=== PATIENT | male | born 1950 | race Caucasian/White ===

== ENCOUNTER 2018-05-07 08:00 | Emergency (ER) | payer OTHER ==
[2018-05-07 08:18] VITALS: BMI 26.6
--- NOTE | 2018-05-07 08:44 | PDOC ---
History of Present Illness - General Chief Complaint: Pain Stated Complaint: BACK PAIN Time Seen by Provider: 05/07/18 08:44 History Source: Patient, Family - History of Present Illness Initial Comments: 05/07/18 09:07 HPI/ROS/PE performed with family translating. Phone skeiner was offered and refused. 67 year old male with PMH kidney stone (2011) presented to ED for right sided flank pain x2 days. He stated his pain is associated with nausea, vomiting. He denied abdominal pain, diarrhea, dysuria, fever, chest pain, shortness of breath. He stated todays pain feels different than his last kidney stone. Pt reported he has been lifting heavy boxes recently. Past History - Past Medical History Allergies/Adverse Reactions: Allergies Allergy/AdvReac Type Severity Reaction Status Date / Time No Known Allergies Allergy Verified 05/07/18 08:18 Home Medications: Ambulatory Orders Ibuprofen 600 mg PO QID #16 tablet 05/07/18 Oxycodone HCl/Acetaminophen [Percocet 5-325 mg Tablet -] 1 tab PO TID PRN #12 tablet MDD 3 05/07/18 Tamsulosin HCl [Flomax] 0.4 mg PO HS #10 capsule 05/07/18 COPD: No Kidney Stones: Yes - Immunization History Immunization Up to Date: Yes - Suicide/Smoking/Psychosocial Hx Smoking History: Never smoked Hx Alcohol Use: Yes Drug/Substance Use Hx: No Review of Systems - Review of Systems Able to Perform ROS?: Yes Comments:: 05/07/18 09:09 General: denied fever, chills, night sweats, generalized weakness. HEENT: denied sore throat, rhinorrhea, ear pain. Heart: denied chest pain, palpitations, syncope, lower extremity swelling, diaphoresis. Respiratory: denied shortness of breath, cough, sputum production, hemoptysis. Abdomen: admitted to nausea, vomiting. denied abdominal pain, diarrhea, constipation, blood in stool. : admitted to flank pain. denied dysuria, increased urinary frequency, hematuria, urinary incontinence. Back: denied back pain. Musculoskeletal: denied joint pain, muscle pain, joint swelling. Neurological: denied headache, dizziness, numbness, tingling, weakness. Skin: denied rash, laceration, abrasion. *Physical Exam - Vital Signs Last Vital Signs Temp Pulse Resp BP Pulse Ox 97.8 F 47 L 18 128/68 100 05/07/18 08:10 05/07/18 08:10 05/07/18 08:10 05/07/18 08:10 05/07/18 08:10 - Physical Exam Comments: 05/07/18 09:09 Constitutional: Well-nourished, Well-developed, appearing stated age. HEENT: head is normocephalic, atraumatic. EOMI. PERRLA. Neck: supple. Full ROM. Heart: regular rhythm. no murmurs, rubs or gallops. Lungs: clear to auscultation bilaterally. no crackles, rhonchi or wheezing. no stridor. Back: no CVA tenderness bilaterally. no midline L-spine tenderness. no paraspinal L-spine tenderness to palpation. Abdomen: soft, nontender. normal bowel sounds. no rebound, guarding, masses. Extremities: Peripheral pulses intact and equal. No lower extremity edema. Neurological: CN 2-12 grossly intact. Moves all four extremities. Psych: awake, alert, oriented x3. Follows commands. Answers questions appropriately. ED Treatment Course - LABORATORY CBC & Chemistry Diagram: 05/07/18 09:00 05/07/18 09:00 Medical Decision Making - Medical Decision Making 05/07/18 09:11 67 year old male with PMH kidney stone presented to ED for right sided flank pain associated with nausea/vomiting x2 days. Initial Vital Signs Temp Pulse Resp BP Pulse Ox 97.8 F 47 L 18 128/68 100 05/07/18 08:10 05/07/18 08:10 05/07/18 08:10 05/07/18 08:10 05/07/18 08:10 Afebrile. Bradycardia, no chest pain, no shortness of breath. No tachypnea. No hypertension. No hypoxia on room air. Pending spiral CT for evaluation of possible nephrolithiasis. Pending UA/UC, CMP, CBC for evaluation of possible UTI, pyelonephritis, kidney function. Coag and T/S sent for pre-op purposes. Tylenol ordered for pain. 05/07/18 10:02 CBC WBC 7.6 K/mm3 (4.0-10.0) 05/07/18 09:00 RBC 5.00 M/mm3 (4.00-5.60) 05/07/18 09:00 Hgb 14.4 GM/dL (11.7-16.9) 05/07/18 09:00 Hct 45.3 % (35.4-49) 05/07/18 09:00 MCV 90.5 fl (80-96) 05/07/18 09:00 MCH 28.9 pg (25.7-33.7) 05/07/18 09: MCHC 31.9 g/dl (32.0-35.9) L 05/07/18: RDW 13.6 % (11.9-15.9) 05/07/18 09:00 Plt Count 234 K/MM3 (134-434) 05/07/18 09:00 MPV 8.0 fl (7.5-11.1) 05/07/18:00 Absolute Neuts (auto) 6.0 K/mm3 (1.5-8.0) 05/07/18 09: Neutrophils % 78.7 % (42.8-82.8) 05/07/18: Lymphocytes % 14.0 % (8-40) 05/07/18 09:00 Monocytes % 6.2 % (3.8-10.2) 05/07/18 09:00 Eosinophils % 0.4 % (0-4.5) 05/07/18:00 Basophils % 0.7 % (0-2.0) 05/07/18 09:00 Nucleated RBC % 0 % (0-0) 05/07/18 09: No leukocytosis. No anemia. Urine Test Results Urine Color Ltyellow 05/07/18: Urine Appearance Clear 05/07/18: Urine pH 7.0 (5.0-8.0) 05/07/18: Ur Specific Graham 1.013 (1.010-1.035) 05/07/18 09:00 Urine Protein Negative (NEGATIVE) 05/07/18:00 Urine Glucose (UA) Negative (NEGATIVE) 05/07/18 09:00 Urine Ketones Negative (NEGATIVE) 05/07/18 09: Urine Blood Negative (NEGATIVE) 05/07/18 09: Urine Nitrite Negative (NEGATIVE) 05/07/18: Urine Bilirubin Negative (<2.0 mg/dL) 05/07/18 09:00 Ur Leukocyte Esterase Negative (NEGATIVE) 05/07/18 09:00 No evidence of UTI. No blood in urine. 05/07/18 10:24 CMP Sodium 140 mmol/L (136-145) 05/07/18 09:00 Potassium 4.7 mmol/L (3.5-5.1) 05/07/18 09:00 Chloride 110 mmol/L (98-107) H 05/07/18 09:00 Carbon Dioxide 25 mmol/L (21-32) 05/07/18 09:00 Anion Gap 5 MMOL/L (8-16) L 05/07/18 09:00 BUN 20 mg/dL (7-18) H 05/07/18 09:00 Creatinine 1.2 mg/dL (0.55-1.3) 05/07/18 09:00 Creat Clearance w eGFR > 60 (>60) 05/07/18 09:00 Random Glucose 114 mg/dL (74-106) H 05/07/18 09:00 Calcium 9.6 mg/dL (8.5-10.1) 05/07/18 09:00 Total Bilirubin 0.4 mg/dL (0.2-1) 05/07/18 09:00 AST 16 U/L (15-37) 05/07/18 09:00 ALT 23 U/L (13-61) 05/07/18 09:00 Alkaline Phosphatase 92 U/L (45-117) 05/07/18 09:00 Total Protein 7.6 g/dl (6.4-8.2) 05/07/18 09:00 Albumin 4.0 g/dl (3.4-5.0) 05/07/18 09:00 No electrolyte abnormalities. No JANET. Pt is dehydrated, normal saline bolus given. No LFT abnormality. Pending CT. 05/07/18 10:[address] results: 4-5 mm right ureteral calculus at UVJ with hydronephrosis. nonobstructing multiple calculi noted in left kidney, 2-4 mm. incidental gastric hypertrophy with upper abdominal lymph nodes noted. left renal cyst and liver cyst noted. No AAA. Pt reported slight improvement of pain with tylenol. Toradol ordered. Flomax ordered. 05/07/18 11:00 Pt notified of results and told there isd a possibility of the findings being the result of cancer. Pt informed of need to follow up with GI on these findings. Pt stated that that he understood and would follow up. Pt stated that he has a PCP but it is difficult to get an appointment. Pt given copy of CT report. Will give pt PCP follow up. Will given pt urology and GI follow up. 05/07/18 11:19 Pt given PCP appointment with Dr. Edward 05/12 at 1045 AM. *DC/Admit/Observation/Transfer Diagnosis at time of Disposition: Kidney stone - Discharge Dispostion Disposition: HOME Condition at time of disposition: Stable Decision to Admit order: No - Prescriptions Prescriptions: Ibuprofen 600 mg PO QID #16 tablet Oxycodone HCl/Acetaminophen [Percocet 5-325 mg Tablet -] 1 tab PO TID PRN #12 tablet MDD 3 PRN Reason: Severe Pain Tamsulosin HCl [Flomax] 0.4 mg PO HS #10 capsule - Referrals Referrals: Cesar Abad MD [Staff Physician] - Leonardo Pettit MD [Staff Physician] - Edmundo Garcia MD [Staff Physician] - Renzo Cárdenas MD., MD [Staff Physician] - Ramesh Busby MD [Staff Physician] - - Patient Instructions Printed Discharge Instructions: Kidney Stones -- Adult Additional Instructions: You were seen today for flank pain. Your lab work was normal. Your cat-scan showed a kidney stone on the right that is causing your pain. There were smaller stones also seen on the left. Follow up with the urologist I have provided for you on these findings. I have sent pain medication and flomax to your pharmacy, take as advised on label. Incidentally, your stomach appeared thickened, and there were lymph nodes seen in your upper abdomen. This finding is concerning for cancer. Follow up with the hull outfit supervisor I have provided for you. I have provided you with an appointment for a primary care doctor. Attend the appointment given to you, Saturday 05/12 at [address] Taylor Muhammad. Your care is not complete until you follow up with the primary care doctor , urologist and hull outfit supervisor. Return to the Emergency Department for increasing pain, vomiting, chest pain, shortness of breath, lightheadedness like you may pass out, vomiting blood, or any other new, worsening or concerning symptoms. Fuiste visto hoy por dolor en el flanco. Tu trabajo de laboratorio fue normal. Maloney escner de jolanta mostr un clculo renal en la derecha que est causando maloney dolor. Tambin se vean piedras ms pequeas a la izquierda. [place] un seguimiento con el urlogo que le proporcion sobre estos hallazgos. He enviado medicamentos para el dolor y flomax a maloney farmacia, tome zoe se indica en la etiqueta. Incidentalmente, maloney estmago pareca engrosado y se observaron ganglios linfticos en la parte superior del abdomen. Iveth hallazgo es preocupante para el cncer. [place] un seguimiento con el gastroenterlogo que le proporcion. Le he proporcionado evan agus para un mdico de atencin primaria. Asista a la agus que le dieron, el lun05/12 a las [address] Taylor Muhammad. Maloney atencin no est completa hasta que [place] un seguimiento con el mdico de atencin primaria, el urlogo y el gastroenterlogo. Regrese al Departamento de Emergencias para aumentar el dolor, los vmitos, el dolor en el pecho, la falta de aliento, el mareo zoe si pudiera desmayarse, vmitos con paola o cualquier otro sntoma nuevo, que empeore o relacionado. - Post Discharge Activity Forms/Work/School Notes: Back to Work
--- NOTE | 2018-05-07 08:45 | PDOC ---
Attending Attestation - Resident Resident Name: Paulette Seay - ED Attending Attestation I have performed the following: I have examined & evaluated the patient, The case was reviewed & discussed with the resident, I agree w/resident's findings & plan, Exceptions are as noted - HPI HPI: 05/07/18 09:18 Mr Joseph is a very healthy 67 yo M who presents to the ER with a complaint of right flank pain Pt has a h/o kidney stones 12 years ago (requiring intervention) Pt states this feels different Pain is sharp, no radiation, no alleviating factors Pain began last night (+) nausea No hematuria, no dysuria - Physicial Exam PE: 05/07/18 09:53 GENERAL: The patient is in no acute distress. LUNGS: Breath sounds equal, clear to auscultation bilaterally. No wheezes, and no crackles. HEART:Regular rate and rhythm, normal S1 and S2 without murmur, rub or gallop. ABDOMEN: Soft, nontender, normoactive bowel sounds. No guarding, no rebound. EXTREMITIES: Normal range of motion, no edema. No clubbing or cyanosis. No erythema, or tenderness. NEUROLOGICAL: Cranial nerves II through XII grossly intact. Normal speech. No focal neurological deficits. MUSCULOSKELETAL: Back non-tender to palpation, Right CVA tenderness SKIN: Warm, Dry, normal turgor, no rashes or lesions noted. - Medical Decision Making 05/07/18 09:54 DD includes: Pyelonephritis, obstructing stone, aortic disaster, musculoskeletal pain Will do: Labs Spiral CT Tylenol for now Re assess 5mm UVJ stone Also, gastric wall thickening We have discussed with patient and daughter the incredible importance of following up with PMD and GI This is potentially a diagnosis of cancer and therefore must be expeditiously worked up Will plan to discharge to home with treatment for kidney stones
[2018-05-07] MEDS ORDERED: KETOROLAC TROMETHAMINE 30 MG/1 ML VIAL IVPUSH ONE ×2 (08:59→10:59)
[2018-05-07] MEDS ORDERED: KETOROLAC TROMETHAMINE 30 MG/1 ML VIAL ONE ×2 (09:03→11:03)
[2018-05-07] MEDS ORDERED: ACETAMINOPHEN 1000 MG/100 ML VIAL (NON FORMULARY) IVPB ONE ×2 (09:09→09:10)
[2018-05-07] MEDS ORDERED: ACETAMINOPHEN INJECTION 100 ML IVPB ONE (09:10)
[2018-05-07] MEDS ORDERED: SODIUM CHLORIDE 1,000 ML IV STA (09:32)
[2018-05-07 09:35] LABS: BASO % 0.7 % (0-2.0); EOS % 0.4 % (0-4.5); HEMATOCRIT 45.3 % (35.4-49); HEMOGLOBIN 14.4 GM/dL (11.7-16.9); MCH 28.9 pg (25.7-33.7); MCHC 31.9 g/dl (32.0-35.9); MEAN CELL VOLUME 90.5 fl (80-96); MONO % 6.2 % (3.8-10.2); NEUT % 78.7 % (42.8-82.8); PLATELET COUNT 234 K/MM3 (134-434); RDW 13.6 % (11.9-15.9); WHITE BLOOD COUNT 7.6 K/mm3 (4.0-10.0)
[2018-05-07 09:37] LABS: URINE APPEARANCE CLEAR; URINE BILIRUBIN NEGATIVE (<2.0 mg/dL); URINE COLOR LTYELLOW; URINE GLUCOSE (UA) NEGATIVE (NEGATIVE); URINE KETONE NEGATIVE (NEGATIVE); URINE LEUK ESTERASE NEGATIVE (NEGATIVE); URINE NITRITE NEGATIVE (NEGATIVE); URINE PROTEIN NEGATIVE (NEGATIVE); URINE UROBILINOGEN NEGATIVE mg/dL (0.2-1.0)
[2018-05-07 10:04] LABS: INR 0.99 (0.83-1.09); PROTHROMBIN TIME (PATIENT) 11.7 SEC (9.7-13.0)
[2018-05-07 10:07] LABS: ACTIVATED PTT 23.1 SECONDS (25.2-36.5)
[2018-05-07 10:22] LABS: ALK PHOS 92 U/L (45-117); ANION GAP 5 MMOL/L (8-16); BILIRUBIN,TOTAL 0.4 mg/dL (0.2-1); BLOOD UREA NITROGEN 20 mg/dL (7-18); CALCIUM 9.6 mg/dL (8.5-10.1); CHLORIDE 110 mmol/L (98-107); CO2 25 mmol/L (21-32); CREATININE 1.2 mg/dL (0.55-1.3); GLUCOSE,RANDOM 114 mg/dL (74-106); POTASSIUM 4.7 mmol/L (3.5-5.1); SGOT/AST 16 U/L (15-37); SGPT/ALT 23 U/L (13-61); SODIUM 140 mmol/L (136-145); TOT PROT 7.6 g/dl (6.4-8.2)
[2018-05-07] MEDS ORDERED: TAMSULOSIN HCL 0.4 MG CAP PO ONE (10:59)
[2018-05-07] MEDS ORDERED: TAMSULOSIN HCL 0.4 MG CAP ONE (11:03)
[2018-05-07 11:29] VITALS: BP 135/84; PULSE 60; TEMP 98.2
== END 2018-05-07 11:30 | disposition home or self-care (01) ==
LOC: JER 08:00
PROC: 3E0337Z Introduction of Electrolytic and Water Balance Substance into Peripheral Vein, Percutaneous Approach (ICD-10-PCS; principal; 2018-05-07)
PROC: 3E033NZ Introduction of Analgesics, Hypnotics, Sedatives into Peripheral Vein, Percutaneous Approach (ICD-10-PCS; 2018-05-07)
PROC: 3E0333Z Introduction of Anti-inflammatory into Peripheral Vein, Percutaneous Approach (ICD-10-PCS; 2018-05-07)
DX: N13.2 Hydronephrosis with renal and ureteral calculous obstruction (principal); Z87.442 Personal history of urinary calculi
CPT/HCPCS: 36415; 74176; 80053; 81003; 85025; 85610; 85730; 86850; 86900; 86901; 87086; 99284-25; J0131; J7030